=== PATIENT | male | born 1985 ===

== ENCOUNTER 2018-01-29 22:39 | Emergency (ER) | payer SELFPAY ==
[2018-01-29 22:51] VITALS: RESP 20; TEMP 98.2
--- NOTE | 2018-01-29 23:29 | C.PDOC ---
History Of Present Illness 32 year old male presents to the ED for evaluation of left shoulder pain which began around 3 days ago. Patient states his pain is worse with movement. Patient took two tablets of Aspirin earlier today without relief. Patient denies chest pain, SOB, recent heavy lifting, recent trauma, or extremity numbness/weakness. Time Seen by Provider: 01/29/18 22:54 Chief Complaint (Nursing): Upper Extremity Problem/Injury History Per: Patient History/Exam Limitations: no limitations Onset/Duration Of Symptoms: Days (3) Current Symptoms Are (Timing): Still Present Quality: "Pain" Exacerbating Factor(s): Movement Additional History Per: Patient Past Medical History Reviewed: Historical Data, Nursing Documentation, Vital Signs Vital Signs: Last Vital Signs Temp 98.2 F 01/29/18 22:44 Pulse 73 01/29/18 22:44 Resp 20 01/29/18 22:44 BP 124/80 01/29/18 22:44 Pulse Ox 99 01/29/18 22:44 - Medical History PMH: No Chronic Diseases Surgical History: No Surg Hx Family History: States: Unknown Family Hx - Social History Hx Alcohol Use: No Hx Substance Use: No - Immunization History Hx Tetanus Toxoid Vaccination: No Hx Influenza Vaccination: No Hx Pneumococcal Vaccination: No Review Of Systems Musculoskeletal: Positive for: Shoulder Pain (left, atraumatic ) Neurological: Negative for: Weakness, Numbness Physical Exam - Physical Exam Appears: Non-toxic, No Acute Distress Skin: Normal Color, Warm, Dry Eye(s): bilateral: Normal Inspection Neck: Normal, No Midline Cervical Tenderness Chest: Symmetrical Cardiovascular: Rhythm Regular Respiratory: Normal Breath Sounds Extremity: No Normal ROM (limited, secondary to tenderness with range of motion ), No Tenderness, Capillary Refill (less than 2 seconds ), No Deformity, No Swelling Pulses: Left Radial: Normal, Right Radial: Normal Neurological/Psych: Oriented x3, Normal Speech, Normal Cognition, Normal Motor, Normal Sensation Gait: Steady ED Course And Treatment O2 Sat by Pulse Oximetry: 99 (on RA) Pulse Ox Interpretation: Normal Progress Note: Motrin PO given. On reassessment, patient is resting comfortably, showing no signs of distress and is stable for discahrge. Patient is advised to follow up with his PMD within 1-2 days for further evaluation. He is advised to return to the ED if symptoms persist or worsen. Disposition Counseled Patient/Family Regarding: Diagnosis, Need For Followup - Disposition Disposition: HOME/ ROUTINE Disposition Time: 23:29 Condition: STABLE Additional Instructions: Please follow up with PMD Take medication as directed Return to ER if worse Prescriptions: Ibuprofen [Motrin] 600 mg PO Q6H #28 tab Instructions: Shoulder Sprain (DC) Forms: [employer] (Polish) - Clinical Impression Clinical Impression: Sprain of shoulder, left - PA / PUBLICATIONS EDITOR / Resident Statement MD/DO has reviewed & agrees with the documentation as recorded. - Scribe Statement The provider has reviewed the documentation as recorded by the Scribe (Karolina Washburn) All medical record entries made by the Scribe were at my direction and personally dictated by me. I have reviewed the chart and agree that the record accurately reflects my personal performance of the history, physical exam, medical decision making, and the department course for this patient. I have also personally directed, reviewed, and agree with the discharge instructions and disposition.
[2018-01-29 23:45] VITALS: BP 120/80; PULSE 74
[2018-01-30 01:49] VITALS: O2SAT 99
== END 2018-01-29 23:44 | disposition home or self-care (01) ==
LOC: C.ER 22:39
DX: S43.402A Unspecified sprain of left shoulder joint, initial encounter (principal); X58.XXXA Exposure to other specified factors, initial encounter